=== PATIENT | female | born 1985 | race Hispanic/Latino ===

== ENCOUNTER 2020-08-03 20:20 | Emergency (ER) | payer OTHER ==
[2020-08-03] MEDS ORDERED: AMOX/CLAV 875/125MG TAB PO ONE (20:42)
== END 2020-08-03 21:26 | disposition home or self-care (01) ==
LOC: EDH 20:20
DX: J06.9 Acute upper respiratory infection, unspecified (principal); Z20.822 Contact with and (suspected) exposure to COVID-19
CPT/HCPCS: 87426; 99283; U0003